=== PATIENT | male | born 1945 | race Caucasian/White ===

== ENCOUNTER 2024-05-24 06:25 | Day surgery (SDC) | payer MEDICARE, OTHER, SELFPAY | END 2024-05-24 11:55 | disposition home or self-care (01) | LOC: GI 06:25 | PROVIDERS: ATTENDING PHYSICIAN Student in an Organized Health Care Education/Training Program | DX: Z12.11 Encounter for screening for malignant neoplasm of colon (principal); K64.4 Residual hemorrhoidal skin tags; Z86.0101 Personal history of adenomatous and serrated colon polyps | CPT/HCPCS: G0105 ==